=== PATIENT | female | born 1990 | race Caucasian/White ===

== ENCOUNTER 2023-03-25 14:56 | Emergency (ER) | payer BC, SELFPAY ==
[2023-03-25 14:57] VITALS: BP 147/88; PULSE 82; RESP 14; TEMP 36.5; O2SAT 100; BMI 42.3
--- NOTE | 2023-03-25 15:22 | ED.VIS.BACK ---
HPI History of Present Illness Chief Complaint: Back Informant: patient Onset/Context/Timing Onset: Today and Hours Context: Sudden Onset Injury: direct trauma and fall Timing: Continuous Quality: Sharp Location: Lumbar and Buttock Current Severity: Moderate Maximum Severity: Moderate Worsened by: improves with Movement Relieved by: Remaining Still Associated Symptoms Associated Symptoms: Negative for Radiation to Right Leg, Radiation to Left Leg, Unable to Transfer, Urinary Retention, Urinary Incontinence, Constipation or Fecal Incontinence Narrative Narrative: 32-year-old female history of prior thyroid cancer thyroidectomy and prior lumbar disc but no prior back surgery. Today she was on a ladder getting up decorations in her garage her foot was wet and she slipped fell 2 to 3 feet to the cement garage floor landing on her lower back and buttock. She got up planes of pain around her lumbar spine and tailbone. Denies any weakness or incontinence. No LOC. No vomiting. Injury initially occurred around 8 AM this morning. Prior similar symptoms: No Recent Illness/Hospitalization: No PFSH PFSH Home Medications oxycodone-acetaminophen 5 mg-300 mg tablet 1 tab PO Q6H PRN pain 4 days #14 tabs 03/25/23 [Rx Last Taken Unknown] Allergy/AdvReac Type Severity Reaction Status Date / Time atenolol Allergy Mild Hives Verified 03/25/23 14:59 latex Allergy Mild Hives Verified 03/25/23 14:59 NSAIDS (Non-Steroidal Allergy Mild Hives Verified 03/25/23 14:59 Anti-Inflamma vinyl ether Allergy Mild Hives Verified 03/25/23 14:59 Social History Smoking Status: Never smoker ROS ROS ED ROS Narrative His recent illness. Review of Systems ROS Unobtainable: Denies due to encephalopathy Constitutional Constitutional ED: Denies chills or fever(s) Eyes Eyes: Denies blurry vision ENT ENT ED: Denies ear pain Cardiovascular Cardiovascular: Denies chest pain Respiratory/Chest Respiratory/Chest: Denies dyspnea Gastrointestinal Gastrointestinal: Denies abdominal pain Genitourinary Genitourinary ED: Denies dysuria or hematuria Musculoskeletal Musculoskeletal: Denies arthralgias Integumentary Denies abscess Neurologic Neurologic: Denies headache(s) Psychiatric Psychiatric: Denies anxiety Endocrine Endocrinology: Denies cold intolerance Hematologic/Lymphatic Hematologic/Lymphatic: Denies easy bleeding or easy bruising Allergic/Immunologic Allergic/Immunologic ED: Denies mouth swelling, tongue swelling or urticaria EXAM Physical Exam Narrative Exam Narrative: 32-year-old female complaint lower back pain. Vital signs stable afebrile. H EENT exam nontender. No hematoma. No laceration. Pupils round reactive light. Extra motions intact. No facial trauma. C-spine trachea nontender. Lungs clear equal symmetrical. Heart regular rhythm no murmur. Chest wall and ribs nontender. Abdomen soft nontender. Back cervical and thoracic spine nontender. Lower lumbar and primarily tailbone area tenderness. No bony deformity. Moves all 4 extremities. Normal sensation. Normal motor strength. Normal dorsi plantarflexion. No cauda equina or saddle anesthesia. Normal regulatory compliance manager strength. Neurologically she is awake alert with no focal motor deficits. GCS of 15. Const Vital Signs: 03/25/23 14:57 Temperature 97.7 F L Temperature Source Temporal Pulse Rate 82 Respiratory Rate 14 Blood Pressure 147/88 H Blood Pressure Mean 107 Pulse Ox 100 Oxygen Delivery Method Room Air Positive well nourished and well developed; Negative for obese, cachectic, contractures or unkempt General Appearance ED: well developed and NAD; Negative for unkempt, cachectic, contractures or pallor Nutritional Appearance: Negative for cachectic or obese HEENT Reports moist mucous membranes Negative for trauma or tenderness Eyes PERRL and EOMs intact bilaterally General Eye ED: Negative for pale conjunctiva, scleral icterus or other Neck no lymphadenopathy, supple and no JVD General: Negative for tenderness Chest Wall Chest: Negative for other Resp normal respiratory effort and clear to auscultation bilaterally Effort and Inspection: Negative for pain with movement Auscultation: Negative for rales, rhonchi or wheezes Cardio regular rate, regular rhythm, S1 normal heart sound, S2 normal heart sound and no murmurs Palpation: Negative for palpable S3 Rate: Negative for bradycardia or tachycardic Rhythm: Negative for abnormal rhythm Bruits: Negative for other GI normal to inspection, nondistended, normoactive bowel sounds, soft to palpation, non-tender, non-distended and no masses Inspection: Negative for abdominal distention Auscultation: Negative for hyperactive bowel sounds Palpation: Negative for tender, guarding or hepatomegaly Back/Spine normal to inspection; Negative for no thoracic nor lumbar tenderness Back/Spine Narrative: Paralumbar and primarily coccyx tenderness. General Back: Negative for CVA tenderness Cervical Spine: Negative for cervical spine tenderness Thoracic Spine / Upper Back: Negative for paraspinal muscle tenderness Extremity normal to inspection and no clubbing, cyanosis or edema General Extremety ED: Negative for edema or tenderness General Extremity: Negative for edema Neuro oriented x3 and no sensory deficits noted Sensorium / Orientation: Negative for alert, confused or lethargic Sensory Exam: No other Motor Exam: strength 5/5 throughout Psych mental status grossly normal Appearance: Negative for unkempt Attitude: No agitated and No other Mood & Affect: Negative for depressed, sad or tearful Skin no rashes or lesions noted and no wounds General Skin Exam: Negative for jaundice or pallor Lesions: No lesion noted Rashes: No rashes noted Trauma: Negative for abrasion or puncture Wounds: Negative for wounds noted MDM MDM MDM Narrative Medical decision making narrative: 32-year-old female fell 2 to 3 feet from a ladder landing on her buttock complaining lower back pain. She is neurovascular intact at this time. No cauda equina or saddle anesthesia. X-ray of the lumbar spine and coccyx will be obtained. She will be given oxycodone for pain. No significant head injury. No LOC. Neurologically intact. Repeat exam at 4:09 PM doing well. Patient be discharged home. Limit oxycodone for pain. Follow-up if not improving or getting worse. History & Record Review Discussion w/independent historian: Patient Additional record(s) reviewed:: No prior records Radiography X-Ray: LS SPine, Read by ED Physician, Normal, No Fracture and Normal Bony Alignment Diagnostic Testing: LS-spine x-rays x3, interpreted by myself shows no acute abnormality. No fracture. Sacrum and coccyx x-rays x3 interpreted myself again shows no fracture. I did go over the films with the patient. Discharge Plan Triage Chief Complaint: Back ED Provider: Homero Lamb Dx/Rx/DC Orders Clinical Impression: Coccyx contusion, History of degenerative joint disease, Fall Instructions: ED Coccyx or Sacrum Contusion Prescriptions: New oxycodone-acetaminophen 5-300 mg tablet 1 tab PO Q6H PRN (Reason: pain) 4 Days Qty: 14 0RF Primary Care Provider: Care Physician,No Primary Referrals: Schinner,Julio E, MD [Med Staff - Tool Adjuster] - As Needed Care Physician,No Primary [Primary Care Provider] - Activity Restrictions/Additional Instructions: Ice your lower back and tailbone. Oxycodone for pain. Follow-up with your doctor if not improving or getting worse. If you develop weakness in your legs or bowel or bladder incontinence you need to be reevaluated. Disposition Disposition: Home, Self Care
[2023-03-25] MEDS: oxyCODONE 5 MG Tablet PO (15:27)
--- NOTE | 2023-03-25 15:38 | RAD_ITS ---
EXAM: XR SACRUM AND COCCYX, 2 OR MORE VIEWS CLINICAL INDICATION: fall pain TECHNIQUE: Frontal and lateral views of the sacrum and coccyx. COMPARISON: L spine on the same date. FINDINGS: SACRUM/COCCYX: Symmetric arthrosis of the SI joints. No displaced fracture. No destructive or sclerotic lesions. Note that overlapping bowel shadows may however obscure fine detail in the frontal view. DISC SPACES: Degenerative changes in the lower lumbar spine. SOFT TISSUES: No significant abnormality. No soft tissue swelling or gas. RAD/Sacrum-Coccyx min 2 Views IMPRESSION: Degenerative changes. No acute osseous findings. Electronically Signed: Donta Cameron DO at 16:21 EDT ,
--- NOTE | 2023-03-25 15:38 | RAD_ITS ---
EXAM: XR LUMBOSACRAL SPINE, 2 OR 3 VIEWS CLINICAL INDICATION: fall pain. TECHNIQUE: Frontal and lateral views of the lumbar spine and sacrum. COMPARISON: Sacrum radiographs on the same date. FINDINGS: VERTEBRAE: Mild multilevel endplate osteophytosis and facet arthrosis throughout the lumbar spine. Multiple Schmorl''s nodes. Preservation of the normal lumbar lordosis. No spondylolysis or spondylolisthesis. No acute fracture. DISC SPACES: Multilevel intervertebral disc height loss particularly at L4-L5 and L5-S1. GASTROINTESTINAL TRACT: Normal as visualized. Included bowel gas pattern is non-obstructive. RAD/Lumbar Spine 2 or 3 Views IMPRESSION: No spondylolysis or spondylolisthesis. No acute fracture. Degenerative changes. Electronically Signed: Donta Cameron DO at 16:19 EDT ,
== END 2023-03-25 16:38 | disposition home or self-care (01) ==
PROVIDERS: Emergency Provider Emergency Medicine; Visit Provider Emergency Medicine
DX: S30.0XXA Contusion of lower back and pelvis, initial encounter (principal); M19.90 Unspecified osteoarthritis, unspecified site; Z85.850 Personal history of malignant neoplasm of thyroid; E89.0 Postprocedural hypothyroidism; W11.XXXA Fall on and from ladder, initial encounter; Y93.89 Activity, other specified; Y92.59 Other trade areas as the place of occurrence of the external cause
CPT/HCPCS: 72100; 72220; 99282